=== PATIENT | male | born 1955 | race Caucasian/White ===

== ENCOUNTER 2020-12-20 13:12 | Outpatient (CLI) | payer MEDICARE, BC ==
[2020-12-20 14:07] VITALS: BP 126/74
--- NOTE | 2020-12-20 14:07 | SLEEP CARE CONSULTATION ---
Information from patient questionnaire entered by Lisa Fisher. I have reviewed and concur with the information entered by Lisa Fisher. This document represents the service I personally performed and the decisions made by , Rebeca Salomon ARNP. History of Present Illness Service Date and Time: 12/20/2020 1312 Reason for Visit: New patient, Previously diagnosed sleep apnea (very severe - AHI - 69.1), sleep apnea on CPAP therapy, Re-establish care (last seen 2006) Chief Complaint: reports: Other (need a new machine) Date of Onset: 15 years plus Usual bedtime: 9 pm Time it takes to fall asleep: 5-10 minutes Snores at night: No Observed to quit breathing while asleep: No Sleeps alone due to snoring: No Number of times waking at night: 1 Reasons for waking at night: reports: Bathroom Toss, Turn, or Twitch while sleeping: No Recalls having dreams: No Usually gets out of bed at: 5 am Feels refreshed in the morning: Yes Morning headache: No Sleepy or fatigued during the day: No Ever fallen asleep while driving: No Takes day naps: No Dreams during day naps: No Prior sleep studies: Yes Year and Where: 2006 - [facility] Type of Sleep Study: Polysomnography Additional HPI information: JHONNY WORTHY was previously diagnosed to have very severe, AHI 69.1, obstructive sleep apnea-hypopnea syndrome and comes in today to re-establish care for CPAP therapy. Patient needs a new device. - Parasomnia Symptoms Ever been unable to move upon waking from sleep: No Walks in sleep: No Talks in sleep: No Ever acted out dreams in sleep: No Ever felt weak in the knees when startled or emotional: No Bothered by creepy, crawly, restless sensations in legs: No Problems with memory or concentration: No CPAP Compliance Data - Data Reviewed with Patient Current pressure setting (cmH2O): 11 Compliance data discussion: His humidifier started leaking and is not working. The dial light has been flashing for about 3 weeks. He states the memory card is no longer working. He states he wears it on average 7-8 hours a night from 9 PM to 4:30-5:00 AM. He uses a nasal pillows Resmed Kiran Fx mask. He has been using the same mask for 5 years. He changed the cushion out 3-4 years ago but he cleans it regularly. Subjective Patient concerns: denies: aerophagia, mask discomfort, air blowing in eyes, mask leak noise, condensation in mask/hose, nasal congestion, dry mouth, nose, throat, epistaxis, other Observed to snore while using device: No Current pressure setting perceived as: comfortable On therapy, patient: reports: sleeping better, awakening more refreshed, being more awake and alert during the day, more rested overall. denies: drowsiness while driving Current [place] Sleepiness Scale score: 0 Social History The patient's occupation is a RETIRED. Patient is and lives in [place]. Have you smoked in the past 12 months: Yes Cigarettes per day (20/pack): 20 Years of smokin (plus) Smoking Pack Years: 40.0 Alcohol use: Yes Alcohol amount and frequency: 2 drinks most days Caffeine use: Yes Caffeine amount and frequency: 3 cups daily Family History Family history of sleep disordered breathing: Yes Family Hx Sleep Apnea: Sibling: Sleep apnea - Treated Allergies and Home Medications Drug allergies reviewed: Yes (NKDA) Home medication list reviewed: Yes Allergy and home medication list: Aspirin 81 mg Review of Systems Weight loss over past 5 years: 35 Ear/Nose/Throat: reports: tonsillectomy, wisdom teeth removed Musculoskeletal: reports: back pain Physical Exam Blood Pressure: 126/74 Cuff size: wrist Heart Rate: 54 O2 Saturation: 97 Height: 6 ft 4 in Weight: 201 lb Body Mass Index: 24.4 BMI Classification: Healthy weight Impression and Plan 1. Obstructive Sleep Apnea-Hypopnea Syndrome, very severe, with unknown treatment compliance and unknown apnea control. On CPAP therapy, the patient has better sleep quality and is more rested overall. I was able to find on device that he is currently set at 11 cmH2O for his pressure on his CPAP. Patient's device is about 14 to 15 years old. Patient's device has a credit card style memory card. We were unable to obtain compliance information from the memory card at his visit today. Patient states he is using the machine nightly from about 9 PM to 430-5 AM, for 7-8 hours of sleep a night. Patient states he cannot sleep without it. Patient's machine is malfunctioning, the humidifier has stopped working and there is a error light flashing on the top of the machine. Patient also needs DME supplier for his new machine and supplies. I will have my fleet coordinator inform of DME options. A DWO prescription will then be made. Patient advised to contact this office if further supply problems. Compliance guidelines for new device and follow up discussed. Patient is at a healthy weight. I will follow-up with him 1 month after he receives his new device. Patient's apnea severity and rationale for treatment to reduce apnea, improve sleep quality and reduce cardiovascular and cerebrovascular events was reviewed. * Continue auto CPAP pressure at 11 cmH2O * Update device and supplies * Transfer DME * Notify me if snoring with mask or feeling that the pressure is too much or too little * Maintain a healthy weight * Call this office if any problems using CPAP * Return for follow up one month after obtaining new device, or sooner if concerns arise Counseling Topics: Spare mask, Weight control Visit Type: In Office Time Spent with Patient (minutes): 30 Provider Statement: I spent 100% of the Face to Face Visit with the patient with greater than 50% spent counseling the patient and coordination of care.
== END 2020-12-20 13:13 | disposition home or self-care (01) ==
LOC: SC 13:12
PROVIDERS: ATTEND Nurse Practitioner Family
DX: G47.33 Obstructive sleep apnea (adult) (pediatric) (principal); F17.210 Nicotine dependence, cigarettes, uncomplicated
CPT/HCPCS: 99203; G0463; 99212

== ENCOUNTER 2021-03-16 09:02 | Outpatient (CLI) | payer MEDICARE, BC ==
[2021-03-16 09:39] VITALS: BP 116/76
--- NOTE | 2021-03-16 09:39 | SLEEP CARE CONSULTATION ---
Information from patient questionnaire entered by Alirio Guerrero MA. I have reviewed and concur with the information entered by Alirio Guerrero MA. This document represents the service I personally performed and the decisions made by , Rebeca Salomon ARNP. History of Present Illness Service Date and Time: 03/16/2021 0902 Previous diagnosis: Very Severe, Obstructive Sleep Apnea-Hypopnea Syndrome AHI: 69.1 Reason for follow up: first compliance (set up 01/28), first compliance after device update Equipment type: CPAP Equipment obtained from: [employer] (getting supplies) Mask style: Nasal pillows (Airfit P30i) Mask brand: Resmed Backup mask available: Yes (old mask) Last cushion change: 5 weeks Prior sleep studies: Yes Year and Where: 2006 - [facility] Type of Sleep Study: Polysomnography HPI additional information: JHONNY WORTHY was diagnosed to have very severe, AHI 69.1, obstructive sleep apnea-hypopnea syndrome and returned today for CPAP therapy first compliance after updating device follow-up. Sleep Study - Results Type of Sleep Study: Polysomnography Prior sleep studies: Yes Year and Where: 2006 - [facility] CPAP Compliance Data - Data Reviewed with Patient Average duration of nightly device use: 7 hours 58 minutes Compliance rate %: 100 Current pressure setting (cmH2O): 11 Average residual AHI: 0.7 Central apnea: .1 Obstructive apnea: .2 Subjective Patient concerns: denies: aerophagia, mask discomfort, air blowing in eyes, mask leak noise, condensation in mask/hose, nasal congestion, dry mouth, nose, throat, epistaxis, other Observed to snore while using device: No Current pressure setting perceived as: comfortable On therapy, patient: reports: sleeping better, awakening more refreshed, being more awake and alert during the day, more rested overall. denies: drowsiness while driving Current [place] Sleepiness Scale score: 1 (2020) Allergies and Home Medications Home medication list reviewed: Yes (no changes) Review of Systems Review of systems same as previous: Yes (no changes) Physical Exam Vital signs obtained and entered by: Yolanda TORRES Blood Pressure: 116/76 (left) Cuff size: wrist Heart Rate: 59 O2 Saturation: 97 (with mask) Height: 6 ft 4 in Weight: 211 lb (without boots) Body Mass Index: 25.7 BMI Classification: Overweight Impression and Plan 1. Obstructive Sleep Apnea-Hypopnea Syndrome, very severe, with excellent t reatment compliance and excellent apnea control. On CPAP therapy, the patient has better sleep quality and is more rested overall. Patient is very satisfied with current CPAP therapy, new machine and has significant improvement of his sleep apnea. Patient was encouraged to lose weight for their overall health and to reduce apneas. Patient's apnea severity and rationale for treatment to reduce apnea, improve sleep quality and reduce cardiovascular and cerebrovascular events was reviewed. * Continue auto CPAP pressure at 11 cmH2O * Notify me if snoring with mask or feeling that the pressure is too much or too little * Try to lose weight and maintain a healthy weight * Call this office if any problems using CPAP * Return for follow up in 1 year, or sooner if concerns arise Counseling Topics: Spare mask, Weight control Visit Type: In Office Time Spent with Patient (minutes): 20 Provider Statement: I spent 100% of the Face to Face Visit with the patient with greater than 50% spent counseling the patient and coordination of care.
== END 2021-03-16 09:03 | disposition home or self-care (01) ==
LOC: SC 09:02
PROVIDERS: ATTEND Nurse Practitioner Family
DX: G47.33 Obstructive sleep apnea (adult) (pediatric) (principal)
CPT/HCPCS: 99213; G0463; 99212

== ENCOUNTER 2022-05-18 09:38 | Outpatient (CLI) | payer MEDICARE, BC ==
[2022-05-18 10:27] VITALS: BP 134/88
--- NOTE | 2022-05-18 10:27 | SLEEP CARE CONSULTATION ---
Information from patient questionnaire entered by Jeff Williamson. I have reviewed and concur with the information entered by Jeff Williamson. This document represents the service I personally performed and the decisions made by me, Rebeca Salomon ARNP. History of Present Illness Service Date and Time: 05/18/2022 0938 Previous diagnosis: Very Severe, Obstructive Sleep Apnea-Hypopnea Syndrome AHI: 69.1 Reason for follow up: annual (LAST SEEN 03/2021) Equipment type: CPAP (RESMED Airsense 11 s/u 01/2021) Equipment obtained from: [employer] (getting supplies) Mask style: Nasal pillows (Airfit P30i) Backup mask available: No (will keep old mask when replaced) Last cushion change: 1 year Prior sleep studies: Yes Year and Where: [address] [facility] Type of Sleep Study: Polysomnography HPI additional information: JHONNY WORTHY was diagnosed to have very severe, AHI 69.1, obstructive sleep apnea-hypopnea syndrome and returned today for CPAP therapy annual follow-up. Sleep Study - Results Type of Sleep Study: Polysomnography Prior sleep studies: Yes Year and Where: [address] [facility] CPAP Compliance Data - Data Reviewed with Patient Average duration of nightly device use: 7 hours 36 minutes Compliance rate %: 99 (180/180 day used) Current pressure setting (cmH2O): 11 Average residual AHI: 1.2 Central apnea: 0.1 Obstructive apnea: 0.6 Average large leak: 24.0 LPM Subjective Patient concerns: denies: aerophagia, mask discomfort, air blowing in eyes, mask leak noise, condensation in mask/hose, nasal congestion, dry mouth, nose, throat, epistaxis Observed to snore while using device: No Current pressure setting perceived as: comfortable Initial [place] Sleepiness Scale score: 0 (2020) Current [place] Sleepiness Scale score: 0 (05/18/22) Allergies and Home Medications Drug allergies reviewed: Yes (NKDA) Home medication list reviewed: Yes (no changes) Review of Systems Review of systems same as previous: Yes (no changes) Physical Exam Vital signs obtained and entered by: JEFF Evans MA Blood Pressure: 134/88 (LEFT ARM) Cuff size: regular Heart Rate: 85 O2 Saturation: 95 Height: 6 ft 4 in Weight: 215 lb Body Mass Index: 26.2 BMI Classification: Overweight Impression and Plan 1. Obstructive Sleep Apnea-Hypopnea Syndrome, very severe, with good treatment compliance and good apnea control. On CPAP therapy, the patient has better sleep quality and is more rested overall. Patient has significant improvement of their sleep apnea and are satisfied with current CPAP therapy. Patient denies problems with oral dryness, nasal congestion, epistaxis, skin irritation or aerophagia. Patient's apnea severity and rationale for treatment to reduce apnea, improve sleep quality and reduce cardiovascular and cerebrovascular ev ents was reviewed. 2. Overweight, unspecified. Currently patients BMI is 26.2. Obesity increases the risk of apnea, CPAP pressure requirements and overall health risks especially cardiovascular and diabetes. Thus patient is advised to lose weight. * Continue CPAP pressure at 11 cmH2O * Update supplies * Notify me if snoring with mask or feeling that the pressure is too much or too little * Attempt to lose weight * Call this office if any problems using CPAP * Return for follow up in 1 year, or sooner if concerns arise Counseling Topics: Spare mask, Weight loss health impact Visit Type: In Office Time Spent with Patient (minutes): 22 Provider Statement: I spent 100% of the Face to Face Visit with the patient with greater than 50% spent counseling the patient and coordination of care.
== END 2022-05-18 09:39 | disposition home or self-care (01) ==
LOC: SC 09:38
PROVIDERS: ATTEND Nurse Practitioner Family
DX: G47.33 Obstructive sleep apnea (adult) (pediatric) (principal); E66.3 Overweight; Z68.26 Body mass index [BMI] 26.0-26.9, adult
CPT/HCPCS: 99213; G0463; 99212